=== PATIENT | female | born 1985 | race Caucasian/White ===

== ENCOUNTER 2016-12-14 15:45 | Emergency (ER) | payer BC ==
[2016-12-14 16:14] VITALS: BP 128/80; TEMP 98.3; O2SAT 94
--- NOTE | 2016-12-14 16:28 | ED.PDOC ---
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 She says that she has not felt the baby move today. She called her cannon pinion adjuster who told her to go to [facility] where they have [place] capabilities. She decided to come here on the way to get heart tones first. No other complaints. Timing/Duration: 24 hours Severity: mild Improving Factors: nothing Worsening Factors: nothing Associated Symptoms: denies symptoms Allergies/Adverse Reactions: Allergies NO KNOWN ALLERGY Allergy (Verified 12/14/16 16:10) Home Medications: Ambulatory Orders NK [NK] 12/14/16 Review of Systems - Review of Systems Constitutional: States: no symptoms reported EENTM: States: no symptoms reported Respiratory: States: no symptoms reported Cardiology: States: no symptoms reported Gastrointestinal/Abdominal: States: no symptoms reported Genitourinary: States: no symptoms reported Musculoskeletal: States: no symptoms reported Skin: States: no symptoms reported Neurological: States: no symptoms reported Endocrine: States: no symptoms reported Hematologic/Lymphatic: States: no symptoms reported Past Medical History (General) - Patient Medical History Hx Congestive Heart Failure: No Hx Diabetes: No - Vaccination History Hx Influenza Vaccination: No - Social History Hx Tobacco Use: Yes - Female History Patient : Yes Expected Date of Delivery:: 07/04/17 Family Medical History - Family History Mother Family History: Unknown Living Status: Still Living Physical Exam - Physical Exam General Appearance: Alert Respiratory: lungs clear Cardiovascular/Chest: normal peripheral pulses, regular rate, rhythm Gastrointestinal/Abdominal: normal bowel sounds, non tender, soft, other - FHTs by doppler are 157 Progress - Progress Progress: 12/14/16 16:29 FHTs 157 Departure - Departure Clinical Impression: Decreased movement Disposition: Discharge to Home or Self Care Condition: Good Departure Forms: ED Discharge - Pt. Copy, Patient Portal Self Enrollment Diet: resume usual diet Activity: other - as per your cannon pinion adjuster Referrals: Clem Zuñiga MD [Primary Care Provider] - 1-2 Weeks Home Medications: Ambulatory Orders NK [NK] 12/14/16 Additional Instructions: Go to [facility] as instructed by your green end man.
== END 2016-12-14 16:37 | disposition home or self-care (01) ==
LOC: ER 15:45
DX: O36.8190 Decreased fetal movements, unspecified trimester, not applicable or unspecified (principal); Z3A.00 Weeks of gestation of pregnancy not specified

== ENCOUNTER → 2017-01-09 | Outpatient (CLI) | payer BC | END | disposition home or self-care (01) | LOC: RESP 10:07 | PROVIDERS: ATTEND Obstetrics & Gynecology | DX: R06.2 Wheezing (principal); I49.9 Cardiac arrhythmia, unspecified; Z3A.27 27 weeks gestation of pregnancy ==